=== PATIENT | male | born 1945 | race Caucasian/White ===

== ENCOUNTER 2016-07-31 06:36 | Day surgery (SDC) | payer MEDICARE, OTHER ==
[~2016-07-31 06:36] MED LIST: Dextrose 5%-0.45% NaCl 1,000 ML IV SCH; Midazolam 1 MG/ML 2 ML SDV ONE; Sodium Chloride 0.9% 10 ML Syringe FLUSH PRN; fentaNYL 100 MCG/2 ML SDV ONE
[2016-07-31] MEDS ORDERED: fentaNYL 100 MCG/2 ML SDV IV ONE ×3 (08:02→15:25)
[2016-07-31] MEDS ORDERED: Midazolam 1 MG/ML 2 ML SDV IV ONE ×6 (08:03→15:25)
--- NOTE | 2016-07-31 10:23 | OR ---
DATE: 07/31/2016 PROCEDURE: Total colonoscopy, NBI, and multiple cold snare polypectomies. INSTRUMENT USED: CF-H180AL Olympus video colonoscope. PREMEDICATIONS: Fentanyl 100 mcg intravenous, Versed 4 mg intravenous. Nasal O2 cannula. The procedure was done under pulse oximetry, BP recording, and cardiac specialist. INDICATION: The patient with previous colonic tubular adenomata. Surveillance colonoscopic examination is done for detection of any polypoid lesions and removal, endoscopic hemostasis therapy if needed. Initial rectal exam was unremarkable. Rigid anoscopy was normal. DESCRIPTION OF PROCEDURE: The colonoscope was passed with ease. Few scattered diverticula were noted in the distal left colon. There was some amount of fecal material that had to be aspirated, exam a bit limited due to the presence of some solid fecal material that could not be aspirated clear. The colon was found to be tortuous and redundant. Technically, the exam a bit prolonged. The colonoscope was passed up to the ileocecal area, photographs were taken of the normal-appearing cecum, identified by landmarks of appendiceal orifice and double-bulged ileocecal folds. In the rectum, multiple diminutive polyps 3 in number were noted, NBI views were obtained, photographs were taken, cold snare polypectomies were done, and the tissues were retrieved and sent for histopathology. In the proximal ascending colon, another diminutive polyp was noted, cold snare polypectomy was done, the tissue was retrieved and sent for histopathology. No stricture. No vascular ectasia. No large isolated ulcerations seen. No evidence of diffuse inflammatory bowel disease in the form of friability, contact bleeding, or ulcerations. Probing the proximal sides of folds and flexures, using adequate distention and clearing up the stool material, withdrawal of the scope was made. No bleeding was noted from any of the visualized areas at the completion of examination. IMPRESSION: 1. Diverticulosis. 2. Multiple diminutive polyps. The patient tolerated the procedure well. [facility] /[id number]
--- NOTE | 2016-07-31 10:31 | LETTER ---
07/31/2016 Bobbi Carranza NP [facility] [address] [place] [address] RE: TIMBONEY : 1945 Dear Ms. Carranza: Mr. Ney Steele had colonoscopic examination done this morning and he tolerated the procedure well. I herewith send a copy of the endoscopy note and photographs for your review. Thank you. Sincerely, [facility] /[id number]
[2016-07-31 10:35] VITALS: BP 128/60
== END 2016-07-31 10:40 | disposition home or self-care (01) ==
LOC: DL.ENDO 06:36
PROVIDERS: ATTEND Internal Medicine Gastroenterology
DX: Z12.11 Encounter for screening for malignant neoplasm of colon (principal); D12.2 Benign neoplasm of ascending colon; D12.8 Benign neoplasm of rectum; K57.30 Diverticulosis of large intestine without perforation or abscess without bleeding; K62.1 Rectal polyp; E78.2 Mixed hyperlipidemia; Z79.899 Other long term (current) drug therapy
CPT/HCPCS: 45385; J2250; J3010; J7042; 88305